=== PATIENT | male | born 1955 | race Caucasian/White ===

== ENCOUNTER 2019-09-06 07:34 | Day surgery (SDC) | payer MEDICARE, OTHER ==
[~2019-09-06 07:34] MED LIST: Lactated Ringers 1,000 ML IV SCH; Sodium Chloride 0.9% 10 ML Syringe FLUSH PRN
[2019-09-06] MEDS ORDERED: Lidocaine 1% PF 2 ML SDV INJECT ONE (07:35)
[2019-09-06] MEDS ORDERED: Propofol 200 MG/20 ML SDV IV ONE (07:35)
--- NOTE | 2019-09-06 09:22 | PCM.OPNOTE ---
- General Post-Op/Procedure Note Date of Surgery/Procedure: 09/06/19 Operative Procedure(s): c scope Findings: nl exam Pre Op Diagnosis: screening Post-Op Diagnosis: Same Anesthesia Technique: MAC Primary Surgeon: Donis Seals Anesthesia Provider: Solitario Alas Pathology: none Complications: None Condition: Good Free Text/Narrative:: see dictation
--- NOTE | 2019-09-06 12:34 | OR ---
DATE OF OPERATION: 09/06/2019 SURGEON: Donis Seals MD PROCEDURE PERFORMED: Colonoscopy. PREOPERATIVE DIAGNOSIS: Need for screening C-scope. POSTOPERATIVE DIAGNOSIS: Normal exam. INDICATIONS FOR PROCEDURE: This is a 64-year-old white male who presents for screening colonoscopy. He was offered and accepted same. DESCRIPTION OF OPERATION: After an excellent IV sedation was administered, digital rectal exam was performed. No marked abnormality was noted. The flexible colonoscope was inserted and advanced to the cecum. The prep was excellent. The following findings were noted. Ascending colon, unremarkable. Transverse colon, unremarkable. Descending colon, unremarkable. Sigmoid and rectum, unremarkable. Colon was deflated, scope was removed. Patient tolerated the procedure well. RECOMMENDATIONS: Repeat scope in 10 years. /[id number]
== END 2019-09-06 10:23 | disposition home or self-care (01) ==
LOC: FB.SDS 07:34
PROVIDERS: ATTEND Surgery
DX: Z12.11 Encounter for screening for malignant neoplasm of colon (principal); I10 Essential (primary) hypertension; E78.2 Mixed hyperlipidemia; K21.9 Gastro-esophageal reflux disease without esophagitis; M54.32 Sciatica, left side; Z87.891 Personal history of nicotine dependence; Z79.1 Long term (current) use of non-steroidal anti-inflammatories (NSAID); Z79.82 Long term (current) use of aspirin; Z79.899 Other long term (current) drug therapy
CPT/HCPCS: 00812-QZ; J2001; J2704; J7120